=== PATIENT | female | born 1975 | race Caucasian/White ===

== ENCOUNTER 2016-06-26 20:24 | Emergency (ER) | payer OTHER ==
--- NOTE | 2016-06-26 20:40 | ERPHSYRPT ---
- History of Present Illness Time Seen by Provider: 06/26/16 20:39 Source: patient Exam Limitations: no limitations Physician History: The patient is a 40-year-old female complaining of a left-sided sore throat today. She also complains of fever and chills and body aches. No cough. She has a past medical history of asthma. Timing/Duration: today Fever Severity: moderate Fever Therapy DEBONE SUPERVISOR: Acetaminophen Associated Symptoms: muscle aches, sore throat - Review of Systems Constitutional: Fever, Chills Eyes: No Symptoms Ears, Nose, & Throat: Throat Pain Respiratory: No Cough, No Dyspnea Cardiac: No Chest Pain, No Edema, No Syncope Abdominal/Gastrointestinal: No Abdominal Pain, No Nausea, No Vomiting, No Diarrhea Genitourinary Symptoms: No Dysuria Musculoskeletal: Arthralgias, Myalgias, No Back Pain, No Neck Pain Skin: No Rash Neurological: No Dizziness, No Focal Weakness, No Sensory Changes Psychological: No Symptoms Endocrine: No Symptoms Hematologic/Lymphatic: No Symptoms Immunological/Allergic: No Symptoms All Other Systems: Reviewed and Negative - Nursing Vital Signs Nursing Vital Signs: Initial Vital Signs Temperature 99.6 F Temperature Source Oral Pulse Rate 144 Respiratory Rate 22 Blood Pressure [Right Arm] 152/88 Pain Intensity 6 - Physical Exam General Appearance: mild distress Eye Exam: PERRL/EOMI ENT Exam: pharyngeal erythema, No tonsillar exudate Neck Exam: supple, full range of motion, No meningismus Respiratory Exam: normal breath sounds, lungs clear, no respiratory distress Cardiovascular/Chest Exam: normal heart sounds, regular rate/rhythm, No murmur, No edema Gastrointestinal/Abdominal Exam: soft, non tender, no distention Pelvic Exam: not done Rectal Exam: not done Extremity Exam: non-tender, normal range of motion, normal inspection, normal capillary refill Neurologic Exam: alert, oriented x 3, cooperative, unit controller II-XII nml as tested, normal mood/affect, sensation nml, No motor deficits Skin Exam: normal color, warm, dry, No rash SpO2 Interpretation: normal Ordered Tests: Active Orders 24 hr Category Date Time Status STREP SCREEN-BETA A Stat Lab 06/26/16 20:48 Completed Lab/Rad Data: Laboratory Results 06/26/16 Range/Units 20:48 Streptococcus Screen POSITIVE (Negative) - Progress Progress: unchanged Counseled pt/family regarding: diagnosis - Departure Time of Disposition: 21:38 Departure Disposition: Home Clinical Impression: Strep throat Condition: Stable Critical Care Time: No Additional Instructions: You have strep throat. You were given Bicillin 1.2 million units by IM injection in the ER. This is a shot of penicillin which will take the place of having to take penicillin by mouth. You were also given an injection of Toradol 60 mg IM. Take Tylenol and ibuprofen as needed for aches and pains. You can also gargle with warm salt water as needed. Stay out of public areas for 24 hours.
[2016-06-26] MEDS ORDERED: Bicillin L-A 1.2 Mu/2ML SYRINGE IM ONE ×2 (21:40→21:50)
[2016-06-26] MEDS ORDERED: TORAdol 30 mg Injection IM ONE (21:41)
[2016-06-26] MEDS ORDERED: TORAdol 30 mg Injection ONE (21:50)
[2016-06-26 22:03] VITALS: BP 129/75; PULSE 98; O2SAT 100
== END 2016-06-26 22:03 | disposition home or self-care (01) ==
LOC: ED 20:24
DX: J02.0 Streptococcal pharyngitis (principal)
CPT/HCPCS: 87430; 96372; 99283; 99284; J0561; J1885

== ENCOUNTER 2021-01-26 06:19 | Day surgery (SDC) | payer OTHER ==
[2021-01-26] MEDS ORDERED: Lactated Ringers 1,000 ML IV ONE (07:28)
[2021-01-26] MEDS ORDERED: CEFAZOLIN 2 GM-D5W BAG** 2 GM/50 ML ML IV ONE (07:28)
[2021-01-26] MEDS ORDERED: Lactated Ringers 1,000 ML IV SCH (07:30)
[2021-01-26] MEDS ORDERED: CEFAZOLIN 2 GM-D5W BAG** 2 GM/50 ML ML IV SCH (07:30)
[2021-01-26] MEDS ORDERED: Decadron 4 MG INJ ONE (08:15)
[2021-01-26] MEDS ORDERED: DIPRIVAN 200 MG/20 ML IV ONE (08:15)
[2021-01-26] MEDS ORDERED: Zofran 4 MG/2 ML VIAL ONE (08:15)
[2021-01-26] MEDS ORDERED: Versed 2 MG/2 ML Injection ONE (08:16)
[2021-01-26] MEDS ORDERED: SUBLIMAZE 100 MCG/2 ML ONE (08:16)
[2021-01-26 10:30] VITALS: BP 149/81; PULSE 93; O2SAT 94
--- NOTE | 2021-01-27 08:24 | OP ---
SURGERY DATE/TIME: 01/26/2021 0847 PREOPERATIVE DIAGNOSIS: Abnormal uterine bleeding. POSTOPERATIVE DIAGNOSIS: Abnormal uterine bleeding. PROCEDURE: Hysteroscopy D&C. SURGEON: Roger Whitney D.O. CORPORATE STATISTICAL FINANCIAL ANALYST: Analy Corbin surgical scrub technician. ANESTHESIA: General. ESTIMATED BLOOD LOSS: Minimal. COMPLICATIONS: None. INDICATIONS: The risks, benefits, indications and alternatives of the procedure were reviewed with the patient prior to the procedure. The patient understood the risk of infection, bleeding, bowel injury, bladder injury, ureteral injury, uterine perforation associated with the surgery and desires to have the surgery as a possible means to alleviate her current medical condition. DESCRIPTION OF PROCEDURE AND FINDINGS: At this point the patient is taken to the operating room, given general sedation, placed in dorsal lithotomy position, prepped and draped in the usual sterile fashion. A weighted speculum is then placed in the patient's vagina and the anterior lip of the cervix was grasped with a single tooth tenaculum. Endocervical dilators were advanced through the endocervical canal as a means to dilate the cervix and the uterus was dilated and a 5 mm hysteroscope was then placed in through the endocervical canal where visualization revealed no gross abnormalities with the hysteroscope. From this point the hysteroscope was removed and the curette was then placed into the fundus of the uterus where curettage performed in all quadrants of the uterus where minimal bleeding was noted and a moderate amount of tissue was obtained. From this point hemostasis was obtained. From this point all instruments were removed from the patient's vaginal region. The patient was then taken out of dorsal lithotomy position, was taken out of anesthesia and was then taken to the recovery room in stable condition. All instruments and laps were accounted for x2.
== END 2021-01-26 10:30 | disposition home or self-care (01) ==
LOC: SDC 06:19
PROVIDERS: ATTEND Obstetrics & Gynecology
DX: N93.8 Other specified abnormal uterine and vaginal bleeding (principal); N84.1 Polyp of cervix uteri
CPT/HCPCS: 58558; 84703; 88305; J0690; J1100; J2250; J2405; J2704; J3010

== ENCOUNTER 2021-04-06 07:22 | Day surgery (SDC) | payer OTHER ==
[~2021-04-06 07:22] MED LIST: CEFAZOLIN 2 GM-D5W BAG** 2 GM/50 ML ML IV SCH; Lactated Ringers 1,000 ML IV SCH
[2021-04-06] MEDS ORDERED: Zemuron 100 MG/10 ML IJ ONE (07:23)
[2021-04-06] MEDS ORDERED: CEFAZOLIN 2 GM-D5W BAG** 2 GM/50 ML ML IV ONE (07:29)
[2021-04-06] MEDS ORDERED: Lactated Ringers 1,000 ML IV ONE ×2 (07:30→10:50)
[2021-04-06] MEDS ORDERED: Xylocaine-Mpf 2% 5 Ml Vial ONE (09:08)
[2021-04-06] MEDS ORDERED: Versed 2 MG/2 ML Injection ONE (09:08)
[2021-04-06] MEDS ORDERED: SUBLIMAZE 100 MCG/2 ML ONE ×2 (09:08→10:41)
[2021-04-06] MEDS ORDERED: DIPRIVAN 200 MG/20 ML IV ONE ×2 (09:08→09:48)
[2021-04-06] MEDS ORDERED: Zofran 4 MG/2 ML VIAL ONE ×2 (09:11→12:40)
[2021-04-06] MEDS ORDERED: Decadron 4 MG INJ ONE (09:11)
[2021-04-06] MEDS ORDERED: Quelicin Fliptop 200 MG/10 ML ONE (09:56)
[2021-04-06] MEDS ORDERED: BREVIBLOC 100 MG/10 ML IV ONE (10:01)
[2021-04-06] MEDS ORDERED: BRIDION 200MG/2ML IV ONE ×3 (10:20→10:27)
[2021-04-06] MEDS ORDERED: TORAdol 30 mg Injection ONE (10:42)
[2021-04-06] MEDS ORDERED: NORCO 5/325 MG PO ONE (12:50)
[2021-04-06] MEDS ORDERED: Zofran 4 MG/2 ML VIAL IV STA (12:50)
[2021-04-06] MEDS ORDERED: NORCO 5/325 MG ONE (12:56)
[2021-04-06 13:10] VITALS: O2SAT 95
[2021-04-06 13:37] VITALS: BP 160/87; PULSE 84
--- NOTE | 2021-04-07 08:45 | OP ---
SURGERY DATE/TIME: 04/06/2021 0936 PREOPERATIVE DIAGNOSIS: Menorrhagia. POSTOPERATIVE DIAGNOSIS: Menorrhagia. PROCEDURE: D&C with Novasure ablation. SURGEON: Roger Whitney D.O. [employer] ATTENDANT: Analy Corbin surgical instrument mechanic. ANESTHESIA: General. ESTIMATED BLOOD LOSS: Minimal. COMPLICATIONS: None. INDICATIONS: The risks, benefits, indications and alternatives of the procedure were reviewed with the patient prior to the procedure. The patient understood the risk of infection, bleeding, bowel injury, bladder injury, ureteral injury, uterine perforation, pelvic infection associated with the surgery and desires to have this surgery as a possible means to alleviate her current medical condition. DESCRIPTION OF PROCEDURE AND FINDINGS: At this point the patient is taken to the operating room, given general sedation, placed in dorsal lithotomy position, prepped and draped in the usual sterile fashion. A weighted speculum is then placed in the patient's vagina and the anterior lip of the cervix is grasped with a single tooth tenaculum. Endocervical dilators were advanced through the endocervical canal as a means to dilate the cervix and the uterus was sounded to approximately 9 cm. From this point a curette was then placed into the fundus of the uterus and curettage was performed in all quadrants of the uterus retrieving a moderate amount of tissue. From this point after curettage, the Novasure was then placed into the fundal region of the uterus retracting approximately 1 cm and the instrument was engaged with a length of 6.5 cm and a width of 3.5 cm. The machine was turned on for an ablative time of 39 seconds. After completing ablation the instrument was disengaged and removed from the uterine cavity without complication. From this point all instruments were removed from the patient's vaginal region. The patient was then taken out of the dorsal lithotomy position and was then taken to the recovery room in stable condition. All instruments and laps were accounted for x2.
== END 2021-04-06 13:25 | disposition home or self-care (01) ==
LOC: SDC 07:22
PROVIDERS: ATTEND Obstetrics & Gynecology
DX: N92.0 Excessive and frequent menstruation with regular cycle (principal)
CPT/HCPCS: 84703; J0330; J0690; J1100; J1885; J2250; J2405; J2704; J3010; A9270-GY

== ENCOUNTER 2022-12-06 06:17 | Day surgery (SDC) | payer OTHER ==
[2022-12-06] MEDS ORDERED: Reglan 10 MG/2 ML IV ONE (06:42)
[2022-12-06] MEDS ORDERED: Pepcid 20 MG VIAL IV ONE ×2 (06:42→06:54)
[2022-12-06] MEDS ORDERED: Transderm Scop 1.5MG Patch TOP PRN (06:42)
[2022-12-06] MEDS ORDERED: Reglan 10 MG/2 ML ONE (06:54)
[2022-12-06] MEDS ORDERED: Transderm Scop 1.5MG Patch ONE (06:54)
[2022-12-06] MEDS ORDERED: Lactated Ringers 1,000 ML IV ONE (06:54)
[2022-12-06] MEDS ORDERED: CEFAZOLIN 2 GM-D5W BAG** 2 GM/50 ML ML IV ONE (06:54)
[2022-12-06] MEDS ORDERED: CEFAZOLIN 2 GM-D5W BAG** 2 GM/50 ML ML IV SCH (07:00)
[2022-12-06] MEDS ORDERED: Lactated Ringers 1,000 ML IV SCH (07:00)
[2022-12-06 07:01] LABS: HCG URINE TEST NEGATIVE (NEGATIVE)
[2022-12-06 07:14] LABS: Hematocrit 43.7 % (35-47); Mean Cell Volume 90.3 fL (78-100); Mean Corpuscular Hemoglobin 28.9 pg (26-32); Mean Platelet Volume 8.7 fL (7.5-11.0); Platelet Count 432 x10^3/uL (150-450); Red Blood Count 4.84 x10^6/uL (4.1-5.4); Red Cell Distribution Width 11.8 % (11.5-14.0); White Blood Count 8.7 x10^3/uL (4.0-10.5)
[2022-12-06] MEDS ORDERED: DIPRIVAN 200 MG/20 ML IV ONE (07:26)
[2022-12-06] MEDS ORDERED: TORAdol 30 mg Injection ONE (07:27)
[2022-12-06] MEDS ORDERED: Zofran 4 MG/2 ML VIAL ONE (07:27)
[2022-12-06] MEDS ORDERED: Decadron 4 MG INJ ONE (07:27)
[2022-12-06 07:34] LABS: ALBUMIN 4.3 g/dL (3.5-5.0); ALKALINE PHOSPHATASE 67 U/L (38-126); BLOOD UREA NITROGEN 10 mg/dL (7-17); CHLORIDE 104 mmol/L (98-107); Calcium 9.2 mg/dL (8.4-10.2); Carbon Dioxide 27 mmol/L (22-30); Creatinine 1 0.66 mg/dL (0.52-1.04); EST GLOMERULAR FILTRATION RATE > 60.0 ML/MIN; Glucose 103 mg/dL (74-106); Potassium 4.1 mmol/L (3.5-5.1); SGOT/AST 20 U/L (14-36); SGPT/ALT 22 U/L (0-35); SODIUM 141 mmol/L (137-145); Total Protein 7.5 g/dL (6.3-8.2)
[2022-12-06 08:06] LABS: ABO TYPING A; Antibody Screen NEGATIVE (NEGATIVE); RH TYPING POSITIVE
[2022-12-06] MEDS ORDERED: SUBLIMAZE 100 MCG/2 ML ONE ×2 (08:32→09:14)
[2022-12-06] MEDS ORDERED: Versed 2 MG/2 ML Injection ONE (08:32)
[2022-12-06 10:26] VITALS: RESP 16
[2022-12-06 10:43] VITALS: BP 152/81
[2022-12-06 10:45] VITALS: PULSE 90; O2SAT 95
[2022-12-06 11:05] VITALS: TEMP 97.3
--- NOTE | 2022-12-07 07:48 | OP ---
SURGERY DATE/TIME: 12/06/2022918 PREOPERATIVE DIAGNOSIS: Intrauterine cystic mass. POSTOPERATIVE DIAGNOSIS: Intrauterine cystic mass. PROCEDURE: Hysteroscopy D&C with MyoSure removal of endometrial island. SURGEON: Roger Whitney D.O. [employer] DIRECTOR: Kimmie Hair, operating room surgical technologist. ANESTHESIA: General. ESTIMATED BLOOD LOSS: Minimal. COMPLICATIONS: None. INDICATIONS: The risks, benefits, indications and alternatives of the procedure were reviewed with the patient prior to procedure. The patient understood the risk of infection, bleeding, bowel injury, bladder injury, uterine perforation, pelvic infection and thromboembolic disorder associated with this surgery and desires to have this surgery as a possible means to alleviate her current medical condition. DESCRIPTION OF PROCEDURE AND FINDINGS: At this point the patient is taken to the operating room, given general sedation, placed in dorsal lithotomy position, prepped and draped in the usual sterile fashion. A weighted speculum is then placed in the patient's vagina and the anterior lip of the cervix was grasped with a single tooth tenaculum. Endocervical dilators were advanced through the endocervical canal as a means to dilate the cervix. As the patient was dilated dark brown fluid extruded from the endometrial lining where the patient has had previous ultrasound indicated 5 x 3 cm intrauterine cystic mass which likely was expressed during dilatation procedure. From this point a 5 mm hysteroscope was then placed in through the endocervical region towards the fundal region where visualization revealed her to have thickness of the endometrial lining with no gross abnormalities that were noted. From this point the hysteroscope was removed and the MyoSure was inserted through the channel of the hysteroscope where the MyoSure was used to excise a small portion of the posterior aspect of the endometrial lining as well as the anterior aspect of the endometrial lining. MyoSure was then removed and at this point a curette was then placed into the fundus of the uterus and curettage was performed in all quadrants of the uterus retrieving a mild to moderate amount of tissue. From this point hemostasis was obtained. At this point all instruments were removed from the patient's vaginal region. The patient was then taken out of dorsal lithotomy position and was taken out of anesthesia and was then taken to the recovery room in stable condition. All instruments and laps were accounted for x2.
== END 2022-12-06 11:02 | disposition home or self-care (01) ==
LOC: SDC 06:17
PROVIDERS: ATTEND Obstetrics & Gynecology
DX: N85.8 Other specified noninflammatory disorders of uterus (principal)
CPT/HCPCS: 36415; 80053; 81025; 85027; 86850; 86900; 86901; J0690; J1100; J1885; J2250; J2405; J2704; J3010; A9270-GY